=== PATIENT | male | born 1945 | race Caucasian/White ===

== ENCOUNTER 2017-07-11 13:38 | Emergency (ER) | payer MEDICARE, OTHER ==
[~2017-07-11] VITALS: Ht 182.9 cm; Wt 90.7 kg
[~2017-07-11 13:38] MED LIST: CILO100T PO
[2017-07-11 13:44] VITALS: BP 138/72; PULSE 70; RESP 20; TEMP 98.4; O2SAT 96
[2017-07-11] MEDS ORDERED: TETANUS/DIPHTHERIA TOXOID ADULT 0.5 ML VIAL IM ONE (14:15)
--- NOTE | 2017-07-11 14:46 | PD ---
HPI Chief Complaint: Skin Problem Time Seen by Provider: 14:23 Travel History International Travel<30 days: No Contact w/Intl Traveler<30days: No Traveled to known affect area: No History of Present Illness HPI 72-year-old male who sustained a finger laceration/puncture wound caused by an electric drill bit to his left second digit prior to arrival. Patient reports normal sensation and full range of motion within the digit. The bleeding is well-controlled. Tetanus immunization greater than a years old. Pain severity mild. No aggravating or alleviating factors. PFSH Past Medical History Hx Anticoagulant Therapy: Yes (PLETAL ) Arthritis: Yes Blood Disorders: No Cancer: No Cardiovascular Problems: Yes Chemotherapy: No Diminished Hearing: No Endocrine: No Gastrointestinal Disorders: Yes GERD: Yes Genitourinary: No Hiatal Hernia: Yes Hypertension: Yes Immune Disorder: No Musculoskeletal: Yes Neurologic: No Psychiatric: No Reproductive: No Respiratory: No Radiation Therapy: No Tetanus Vaccination: > 5 Years Past Surgical History Abdominal Surgery: Yes (BILATERAL INGUINAL HERNIA REPAIR, APPENDECTOMY) AICD: No Appendectomy: Yes Arteriovenous Shunt: No Body Medical Devices: LEFT GROIN STENTS Insulin Pump: No Joint Replacement: No Neurologic Surgery: Yes (LOW BACK SURGERY DECOMPRESSION. 2000) Pacemaker: No Other Surgery: Yes (LEFT LEG FEMPOP) Social History Alcohol Use: No Tobacco Use: No Substance Use: No Allergies-Medications (Allergen,Severity, Reaction): Coded Allergies: No Known Allergies (Verified , 09/26/09) Reported Meds & Prescriptions Reported Meds & Active Scripts Active Reported Pletal (Cilostazol) 100 Mg Tab 100 Mg PO BID Review of Systems Except as stated in HPI: all other systems reviewed are Neg Physical Exam Narrative GENERAL: Alert, well-appearing male in no acute distress. SKIN: Warm and dry. Small 0.5 cm puncture wound to the left second digit dorsal aspect in the base of the finger. There is no foreign body visualized. Patient is able to fully flex and extend the finger. Normal sensation. Brisk cap refill. CARDIOVASCULAR: Regular rate and rhythm without murmurs, gallops, or rubs. RESPIRATORY: Breath sounds equal bilaterally. No accessory muscle use. GASTROINTESTINAL: Abdomen soft, non-tender, nondistended. MUSCULOSKELETAL: No cyanosis, or edema. Left hand: Small 0.5 cm puncture wound to the left second digit dorsal aspect in the base of the finger. There is no foreign body visualized. Patient is able to fully flex and extend the finger. Normal sensation. Brisk cap refill. BACK: Nontender without obvious deformity. No CVA tenderness. Data Data Last Documented VS Vital Signs Date Time Temp Pulse Resp B/P (MAP) Pulse Ox O2 Delivery O2 Flow Rate FiO2 07/11/17 13:44 98.4 70 20 138/72 (94) 96 Orders Orders Finger ([id number]) (07/11/17 ) Tetanus/Diphtheria Tox Adult (Tetanus/Di (07/11/17 14:15) MDM Medical Decision Making Medical Screen Exam Complete: Yes Emergency Medical Condition: Yes Differential Diagnosis Puncture wound, finger laceration, rule out finger fracture, rule out retained foreign body Narrative Course 72-year-old male who sustained a finger laceration/puncture wound caused by an electric drill bit to his left second digit prior to arrival. Patient reports normal sensation and full range of motion within the digit. The bleeding is well-controlled. The wound was thoroughly cleansed. No foreign body visualized. Patient has full flexion and extension against resistance. Brisk cap refill. 2 point discrimination. X-ray negative for foreign body and fracture. Patient's tetanus immunization was updated in ED. Wound dressed. Wound care discussed. Patient verbalizes understanding and agrees to plan Diagnosis Primary Impression: Puncture wound, hand Qualified Codes: S61.432A - Puncture wound without foreign body of left hand, initial encounter Referrals: Primary Care Physician Additional Instructions: Cleansed the area daily with soap and water and apply clean dressing. Do not submerge the wound into bodies of water such as [place], [place], pools. Use [id number] Tylenol or Motrin as needed for pain. Return to the emergency department if he developed new or worsening symptoms such as increasing pain, swelling, drainage from the site, fever or chills. Disposition: 01 DISCHARGE HOME Condition: Stable Paty Fleming Jul 11, 2017 14:46
--- NOTE | 2017-07-11 14:50 | RADRPT ---
EXAM DATE/TIME: 07/11/2017 14:17 [facility] COMPARISON: No previous studies available for comparison. INDICATIONS : Puncture wound to left 2nd digit. MEDICAL HISTORY : None. SURGICAL HISTORY : None. ENCOUNTER: Initial ACUITY: 1 day PAIN SCORE: 7/10 LOCATION: Left upper extremity FINDINGS: Examination of the second digit of the left hand demonstrates no evidence of fracture or dislocation. No radiopaque foreign bodies are seen. There is mild soft tissue swelling over the proximal second digit. CONCLUSION: Mild soft tissue swelling with no radiopaque foreign body. Yuval Hoover MD on July 11, 2017 at 14:49 Board Certified Radiologist. This report was verified electronically.
== END 2017-07-11 15:08 | disposition home or self-care (01) ==
LOC: PHED 13:38 → PHEFT 15:08
DX: S61.211A Laceration without foreign body of left index finger without damage to nail, initial encounter (principal); W29.8XXA Contact with other powered hand tools and household machinery, initial encounter; Z23 Encounter for immunization
CPT/HCPCS: 73140; 90471; 90714